=== PATIENT | male | born 1975 | race Caucasian/White ===

== ENCOUNTER 2017-03-17 14:16 | Emergency (ER) | payer SELFPAY ==
--- NOTE | 2017-03-17 15:39 | ER Document Report ---
ED Medical Screen (RME) - General Chief Complaint: Arm Problem Stated Complaint: ARM PAIN Time Seen by Provider: 03/17/17 15:36 Mode of Arrival: Ambulatory Information source: Patient Notes: 41 yo male c/o shooting pain in left arm causing inability to clench fist, onset 5 days ago. Then started in right arm. Starts in both hands. 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 Both hands are numb. Symptoms much worse at night. No hx carpel tunnel, googled it and thought it was that also. Some upper back pain. No hx neck injury. TRAVEL OUTSIDE OF THE [place] IN LAST 30 DAYS: No - Related Data Allergies/Adverse Reactions: No Known Drug Allergies Allergy (Severe, Verified 03/17/17 14:20) Past Medical History Skin Medical History: Denies Hx MRSA Psychiatric Medical History: Reports: Hx Depression - Immunizations Hx Diphtheria, Pertussis, Tetanus Vaccination: No Physical Exam - Vital signs Vitals: Temp Pulse Resp BP Pulse Ox 98.1 F 70 18 121/73 96 03/17/17 14:29 03/17/17 14:29 03/17/17 14:29 03/17/17 14:29 03/17/17 14:29 Course - Vital Signs Vital signs: Temp Pulse Resp BP Pulse Ox 98.1 F 70 18 121/73 96 03/17/17 14:29 03/17/17 14:29 03/17/17 14:29 03/17/17 14:29 03/17/17 14:29
[2017-03-17] MEDS ORDERED: PREDNISONE 20 MG TABLET PO ONE (15:46)
--- NOTE | 2017-03-17 15:51 | ER Document Report ---
HPI - HPI Patient complains to provider of: arm pain and numbness Onset: Other - at least 5 days Pain Level: 4 Context: 41 yo male c/o shooting pain in left arm causing inability to clench fist, onset 5 days ago. Then started in right arm. Starts in both hands. 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 thumb- 3rd finger get numb. Symptoms much worse at night. No hx carpel tunnel, googled it and saw he had all the sumptoms. Some upper back pain. No hx neck injury. Associated Symptoms: Other - see above Exacerbated by: Movement - repetative movements at work Relieved by: Denies Similar symptoms previously: No Recently seen / treated by doctor: No - ROS ROS below otherwise negative: Yes Systems Reviewed and Negative: Yes All other systems reviewed and negative - REPRODUCTIVE Reproductive: DENIES: : Past Medical History - General Information source: Patient - Social History Smoking Status: Current Every Day Smoker Frequency of alcohol use: None Drug Abuse: None Lives with: Spouse/Significant other Family History: Reviewed & Not Pertinent Patient has suicidal ideation: No Patient has homicidal ideation: No - Medical History Medical History: Negative Renal/ Medical History: Denies: Hx Peritoneal Dialysis Skin Medical History: Denies Hx MRSA Psychiatric Medical History: Reports: Hx Depression Surgical Hx: Negative - Immunizations Hx Diphtheria, Pertussis, Tetanus Vaccination: No Vertical Provider Document - CONSTITUTIONAL Agree With Documented VS: Yes Exam Limitations: No Limitations General Appearance: No Apparent Distress - INFECTION CONTROL TRAVEL OUTSIDE OF THE [place] IN LAST 30 DAYS: No - HEENT HEENT: Normocephalic - NECK Neck: Supple - non tender c spine - RESPIRATORY O2 Sat by Pulse Oximetry: 96 - MUSCULOSKELETAL/EXTREMETIES Musculoskeletal/Extremeties: GOSIA, FROM Notes: postive tinnels - NEURO Level of Consciousness: Awake, Alert Motor/Sensory: No Motor Deficit, No Sensory Deficit - DERM Integumentary: Warm, Dry Course - Re-evaluation Re-evalutation: 03/17/17 15:50 pt takes subutex. adderall, gabapentin - Vital Signs Vital signs: Temp Pulse Resp BP Pulse Ox 98.1 F 70 18 121/73 96 03/17/17 14:29 03/17/17 14:29 03/17/17 14:29 03/17/17 14:29 03/17/17 14:29 Discharge - Discharge Clinical Impression: Carpal tunnel syndrome Qualifiers: Laterality: bilateral Qualified Code(s): G56.03 - Carpal tunnel syndrome, bilateral upper limbs Condition: Good Disposition: HOME, SELF-CARE Instructions: Acetaminophen, Carpal Tunnel Syndrome ([facility]), Use of Over-The- Counter Ibuprofen ([facility]), Neurologist, Neuropathy ([facility]), Steroid Medication, Temporary Splint ([facility]) Additional Instructions: carpal tunnel over the counter nighttime splint will help relax the nerve at night warm compress neck and upper back alignment while sleeping as discussed. see neurologist for follow up to er if worse use ibuprofen when you are done with the prednisone Prescriptions: Prednisone [Deltasone 10 mg Tablet] 10 mg PO ASDIR PRN #21 tablet PRN Reason: Forms: Return to Work Referrals: BETITO MCGILL MD [ACTIVE STAFF] - Follow up as needed GEOGRE GALAN MD [EMERITUS] - Follow up as needed
[2017-03-17 15:52] VITALS: BP 125/82
== END 2017-03-17 15:57 | disposition home or self-care (01) ==
LOC: ER 14:16
DX: G56.03 Carpal tunnel syndrome, bilateral upper limbs (principal); M79.602 Pain in left arm; R20.0 Anesthesia of skin; M79.601 Pain in right arm; F17.200 Nicotine dependence, unspecified, uncomplicated
CPT/HCPCS: 99283; J7512

== ENCOUNTER 2018-11-15 18:34 | Emergency (ER) | payer BC ==
[2018-11-15] MEDS ORDERED: ONDANSETRON HCL INJ/PF 4 MG/2 ML SDV IV ONE (19:17)
[2018-11-15] MEDS ORDERED: NORMAL SALINE 1000 ML 1,000 ML IV ONE (19:18)
--- NOTE | 2018-11-15 19:19 | ER Document Report ---
ED Medical Screen (RME) - General Chief Complaint: Nausea/Vomiting Stated Complaint: WEAKNESS/VOMITING Time Seen by Provider: 11/15/18 19:11 Mode of Arrival: Ambulatory Information source: Patient Notes: Patient is a 42-year-old male presenting to the emergency department with 5-day history of vomiting, fatigue, fever and diarrhea. Patient reports diarrhea has now resolved but all other symptoms remain. He states he cannot keep anything down. He denies any ongoing abdominal pain but states he has had intermittent sharp stabbing pains in his abdomen. Exam: Patient alert, oriented, no acute distress noted. Abdomen soft, nontender without guarding or rebound. I have greeted and performed a rapid initial assessment of this patient. A comprehensive ED assessment and evaluation of the patient, analysis of test results and completion of the medical decision making process will be conducted by additional ED providers. I have specifically instructed the patient or family members with the patient to immediately return to any nursing staff should anything change in the patient's condition or with their chief complaint. This medical record was dictated with voice recognizing software. There may be grammatical, syntax errors that are unintended. TRAVEL OUTSIDE OF THE [place] IN LAST 30 DAYS: No - Related Data Allergies/Adverse Reactions: No Known Drug Allergies Allergy (Severe, Verified 11/15/18 18:36) Past Medical History - Social History Frequency of alcohol use: None Drug Abuse: None Renal/ Medical History: Denies: Hx Peritoneal Dialysis Skin Medical History: Denies Hx MRSA Psychiatric Medical History: Reports: Hx Depression - Immunizations Hx Diphtheria, Pertussis, Tetanus Vaccination: No Physical Exam - Vital signs Vitals: Temp Pulse Resp BP Pulse Ox 99.0 F 88 16 118/75 96 11/15/18 18:49 11/15/18 18:49 11/15/18 18:49 11/15/18 18:49 11/15/18 18:49 Course - Vital Signs Vital signs: Temp Pulse Resp BP Pulse Ox 99.0 F 88 16 118/75 96 11/15/18 18:49 11/15/18 18:49 11/15/18 18:49 11/15/18 18:49 11/15/18 18:49
[2018-11-15 19:54] LABS: ABSOLUTE BASOPHILS # (AUTO) 0.1 10^3/uL (0.0-0.2); ABSOLUTE EOSINOPHILS # (AUTO) 0.1 10^3/uL (0.0-0.6); ABSOLUTE LYMPHOCYTES (AUTO) 1.6 10^3/uL (0.5-4.7); ABSOLUTE MONOCYTES (AUTO) 0.4 10^3/uL (0.1-1.4); ABSOLUTE NEUT (AUTO) 3.4 10^3/uL (1.7-8.2); BASOPHILS % (AUTO) 1.1 % (0-2); EOSINOPHILS % (AUTO) 2.3 % (0-6); HEMATOCRIT 44.6 % (37.9-51.0); HEMOGLOBIN 15.5 g/dL (13.5-17.0); LYMPHOCYTES % (AUTO) 28.9 % (13-45); MEAN CORPUSCULAR HGB CONC 34.8 g/dL (32.0-36.0); MEAN CORPUSCULAR VOLUME 89 fl (80-97); MONOCYTES % (AUTO) 7.1 % (3-13); PLATELET COUNT 269 10^3/uL (150-450); RED BLOOD COUNT 5.01 10^6/uL (4.35-5.55); SEGMENTED NEUTROPHILS % (AUTO) 60.6 % (42-78); TOTAL CELLS COUNTED % (AUTO) 100 %; WHITE BLOOD COUNT 5.6 10^3/uL (4.0-10.5)
[2018-11-15 20:10] LABS: ALBUMIN 4.3 g/dL (3.5-5.0); ALKALINE PHOSPHATASE 59 U/L (38-126); ANION GAP 8 (5-19); ASPARTATE AMINO TRANSFERASE 23 U/L (17-59); BILIRUBIN,DIRECT 0.1 mg/dL (0.0-0.4); BILIRUBIN,TOTAL 0.4 mg/dL (0.2-1.3); BLOOD UREA NITROGEN 19 mg/dL (7-20); CARBON DIOXIDE 36 mmol/L (22-30); CHLORIDE 94 mmol/L (98-107); GLUCOSE 95 mg/dL (75-110); POTASSIUM 3.8 mmol/L (3.6-5.0)
[2018-11-15 20:23] LABS: BILIRUBIN,URINE NEGATIVE (NEGATIVE); COLOR,URINE STRAW; GLUCOSE, URINE NEGATIVE (NEGATIVE); KETONES,URINE NEGATIVE (NEGATIVE); LEUKOCYTE ESTERASE,URINE NEGATIVE (NEGATIVE); NITRITE,URINE NEGATIVE (NEGATIVE); PROTEIN,URINE NEGATIVE (NEGATIVE); URINE SPECIFIC GRAVITY 1.005
[2018-11-15 20:32] LABS: APPEARANCE,URINE CLEAR
[2018-11-15 22:57] VITALS: BP 134/90
--- NOTE | 2018-11-15 23:03 | ER Document Report ---
ED General - General Chief Complaint: Nausea/Vomiting Stated Complaint: WEAKNESS/VOMITING Time Seen by Provider: 11/15/18 19:11 Mode of Arrival: Ambulatory TRAVEL OUTSIDE OF THE [place] IN LAST 30 DAYS: No - HPI Notes: Patient presents complaining of nausea fatigue and weakness.'s been going on for 3 days. He states he is gradually starting to feel better now that he has received some antiemetics and some fluids. He states he has missed work the last 3 days. He denies any significant pain. Nothing is made the symptoms better or worse. There is no radiation symptoms. They have been constant. They have been moderate. He denies any rashes. No known tick bites. No prob lems with stool or urine. No chest pain shortness breath or cough. - Related Data Allergies/Adverse Reactions: No Known Drug Allergies Allergy (Severe, Verified 11/15/18 18:36) Past Medical History - General Information source: Patient - Social History Smoking Status: Current Every Day Smoker Frequency of alcohol use: None Drug Abuse: None Family History: Reviewed & Not Pertinent Patient has suicidal ideation: No Patient has homicidal ideation: No Renal/ Medical History: Denies: Hx Peritoneal Dialysis Skin Medical History: Denies Hx MRSA Psychiatric Medical History: Reports: Hx Depression - Immunizations Hx Diphtheria, Pertussis, Tetanus Vaccination: No Review of Systems - Review of Systems Constitutional: Malaise, Weakness Cardiovascular: denies: Chest pain, Dyspnea Respiratory: denies: Cough, Short of breath Gastrointestinal: Nausea. denies: Diarrhea, Vomiting -: Yes All other systems reviewed and negative Physical Exam - Vital signs Vitals: Temp Pulse Resp BP Pulse Ox 99.0 F 88 16 118/75 96 11/15/18 18:49 11/15/18 18:49 11/15/18 18:49 11/15/18 18:49 11/15/18 18:49 Interpretation: Normal - General General appearance: Appears well, Alert - HEENT Head: Normocephalic, Atraumatic Eyes: Normal Pupils: PERRL - Respiratory Respiratory status: No respiratory distress Chest status: Nontender Breath sounds: Normal Chest palpation: Normal - Cardiovascular Rhythm: Regular Heart sounds: Normal auscultation Murmur: No - Abdominal Inspection: Normal Distension: No distension Bowel sounds: Normal Tenderness: Nontender Organomegaly: No organomegaly - Back Back: Normal, Nontender - Extremities General upper extremity: Normal inspection, Nontender, Normal color, Normal ROM, Normal temperature General lower extremity: Normal inspection, Nontender, Normal color, Normal ROM, Normal temperature, Normal weight bearing. No: Deion's sign - Neurological Neuro grossly intact: Yes Cognition: Normal Orientation: AAOx4 Ambler Coma Scale Eye Opening: Spontaneous Ambler Coma Scale Verbal: Oriented Erin Coma Scale Motor: Obeys Commands Erin Coma Scale Total: 15 Speech: Normal Motor strength normal: LUE, RUE, LLE, RLE Sensory: Normal - Psychological Associated symptoms: Normal affect, Normal mood - Skin Skin Temperature: Warm Skin Moisture: Dry Skin Color: Normal Course - Re-evaluation Re-evalutation: 11/15/18 23:01 Patient's exam is unremarkable. Vital signs and laboratories are as unremarkable as well. Patient's work-up seems most consistent with a viral syndrome. - Vital Signs Vital signs: Temp Pulse Resp BP Pulse Ox 98.1 F 75 18 134/90 H 99 11/15/18 22:53 11/15/18 22:53 11/15/18 22:53 11/15/18 22:53 11/15/18 22:53 - Laboratory Result Diagrams: 11/15/18 19:35 11/15/18 19:35 Laboratory results interpreted by me: 11/15/18 11/15/18 19:35 19:35 Chloride 94 L Carbon Dioxide 36 H Urine Urobilinogen 2.0 H Discharge - Discharge Clinical Impression: Nausea, Viral syndrome Condition: Stable Disposition: HOME, SELF-CARE Instructions: Viral Syndrome ([facility]) Additional Instructions: Please call your primary care physician first thing in the morning to arrange follow-up Prescriptions: Ondansetron [Zofran Odt 4 mg Tablet] 1 - 2 tab PO Q4H PRN #15 tab.rapdis PRN Reason: For Nausea/Vomiting Forms: Parent Work Note Referrals: MAY CEVALLOS MD [ACTIVE STAFF] - Follow up in 3-5 days
== END 2018-11-15 23:11 | disposition home or self-care (01) ==
LOC: ER 18:34
DX: R11.2 Nausea with vomiting, unspecified (principal); B34.9 Viral infection, unspecified; R53.1 Weakness; F17.200 Nicotine dependence, unspecified, uncomplicated
CPT/HCPCS: 36415; 83690; 85025; 80053; 81001; J2405; J7030